=== PATIENT | female | born 1940 | race Caucasian/White ===

== ENCOUNTER → 2018-07-05 | Outpatient (REF) | payer MEDICARE | LOC: M LAB REF 12:16 | DX: R30.0 Dysuria (principal) | CPT/HCPCS: 87086 ==

== ENCOUNTER → 2019-05-30 | Outpatient (REF) | payer MEDICARE | LOC: M LAB REF 19:21 | PROVIDERS: ATTEND Physician Assistant | DX: N39.0 Urinary tract infection, site not specified (principal) ==

== ENCOUNTER 2025-03-20 10:14 | Emergency (ER) | payer MEDICARE ==
[~2025-03-20] VITALS: Ht 165.1 cm; Wt 59.0 kg
[2025-03-20 11:17] LABS: BASO % 0.5 % (0.0-1.0); EOS # 0.1 10^3/uL (0.0-0.5); EOS % 1.9 % (0.0-3.0); HEMATOCRIT 34.4 % (36.0-47.0); HEMOGLOBIN 10.7 g/dl (12.0-15.5); LYMPH # 0.6 10^3/uL (1.5-5.0); LYMPH % 8.8 % (24.0-44.0); MEAN CORPUSCULAR HEMOGLOBIN 29.8 pg (27.0-33.0); MEAN CORPUSCULAR HGB CONC 31.1 g/dl (32.0-36.5); MEAN CORPUSCULAR VOLUME 95.8 fl (80.0-96.0); MONO # 0.8 10^3/uL (0.0-0.8); MONO % 12.4 % (2.0-8.0); NEUTROPHILS # 4.9 10^3/uL (1.5-8.5); NEUTROPHILS % 76.1 % (36.0-66.0); PLATELET COUNT, AUTOMATED 144 10^3/uL (150-450); RED BLOOD COUNT 3.59 10^6/uL (4.00-5.40); WHITE BLOOD COUNT 6.5 10^3/uL (4.0-10.0)
[2025-03-20 11:32] LABS: INR 1.53; PROTHROMBIN TIME 18.7 SECONDS (12.5-14.5)
[2025-03-20] MEDS: BOOSTRIX VACCINE (TETANUS/DIPHTH/ACEL. PERTUSSIS) 0.5ML SYR IM.IMMUN ONE (11:39)
[2025-03-20 12:03] LABS: ALBUMIN 3.6 G/DL (3.2-5.2); BILIRUBIN,DIRECT 0.5 MG/DL (<0.4); BILIRUBIN,TOTAL 1.4 MG/DL (0.3-1.2); CREATININE FOR GFR 1.72 MG/DL (0.55-1.30); GLOMERULAR FILTRATION RATE 28.6 (>32); POTASSIUM SERUM 4.3 MMOL/L (3.5-5.1); TOTAL PROTEIN 6.2 G/DL (5.7-8.2)
[2025-03-20 15:11] LABS: KETONE, URINE AUTO RFX NEGATIVE (NEGATIVE); LEUKOCYTE ESTERASE UR AUTO RFX NEGATIVE (NEGATIVE); MUCUS, URINE RFX SMALL (NEGATIVE); NITRITE, URINE AUTO RFX NEGATIVE (NEGATIVE); RBC, URINE AUTO RFX 1 /HPF (0-3); SQUAM EPITHELIAL CELL UR AURFX 0 /HPF (0-6); WBC, URINE AUTO RFX 1 /HPF (0-3)
[2025-03-20] MEDS ORDERED: FARX1TAB3 PO (15:36)
[2025-03-20] MEDS ORDERED: SPIR-10 PO (15:36)
[2025-03-20] MEDS ORDERED: METO200T15 PO (15:36)
[2025-03-20] MEDS ORDERED: QUET1TAB17 PO (15:36)
[2025-03-20] MEDS ORDERED: LEVO150T7 PO (15:36)
[2025-03-20] MEDS ORDERED: DONE10TA90 PO (15:38)
[2025-03-20] MEDS ORDERED: ELIQ5TAB PO (15:38)
[2025-03-20] MEDS ORDERED: ATOR1TAB21 PO (15:38)
[2025-03-20] MEDS ORDERED: PACE200T PO (15:38)
[2025-03-20] MEDS ORDERED: B-12100021 PO (15:38)
[2025-03-20] MEDS ORDERED: ALEN70TA82 PO (15:39)
[2025-03-20] MEDS ORDERED: HOME MED LIST COMPLETE! XX SCH (15:40)
[2025-03-20] MEDS: OLANZapine INTRAMUSCULAR 10MG VIAL IM ONE (22:21)
[2025-03-20] MEDS ORDERED: MOM 30ML SUSPENSION UDC PO PRN (23:05)
[2025-03-20] MEDS ORDERED: ACETAMINOPHEN 325 MG TAB PO PRN (23:05)
[2025-03-20] MEDS ORDERED: MAALOX 30 ML SUSP *UDC PO PRN (23:05)
[2025-03-21] MEDS: APIXABAN 2.5 MG TAB PO SCH (00:57)
[2025-03-21] MEDS: HALOPERIDOL LACTATE 5MG/ML VIAL IV ONE (00:57)
[2025-03-21] MEDS: DOCUSATE SODIUM 100MG CAPSULE PO SCH (00:57)
[2025-03-21] MEDS ORDERED: OLANZapine INTRAMUSCULAR 10MG VIAL IM ONE (05:00)
[2025-03-21] MEDS: LEVOTHYROXINE 150MCG TABLET (0.15MG) PO SCH (07:13)
[2025-03-21] MEDS ORDERED: DAPAGLIFLOZIN PROPANEDIOL 10MG TABLET PO SCH (09:00)
[2025-03-21] MEDS ORDERED: METOPROLOL SUCC. 100MG *XL* TAB PO SCH (09:00)
[2025-03-21] MEDS ORDERED: QUEtiapine FUMARATE 12.5 MG HALF-TAB PO SCH (09:00)
[2025-03-21] MEDS ORDERED: SPIRONOLACTONE 12.5MG PER 1/2 TABLET PO SCH (09:00)
[2025-03-21] MEDS ORDERED: AMIODARONE 200 MG TAB PO SCH (09:00)
[2025-03-21 11:46] VITALS: BP 114/65; TEMP 97.3; O2SAT 100
[2025-03-21] MEDS ORDERED: ATORVASTATIN 20 MG TAB PO SCH (21:00)
== END 2025-03-21 11:55 | disposition home or self-care (01) ==
LOC: M ED 10:14 → EDBD 10:14 → M ED 03-21 11:55
DX: R29.6 Repeated falls (principal); I44.0 Atrioventricular block, first degree; I48.91 Unspecified atrial fibrillation; E03.9 Hypothyroidism, unspecified; E78.5 Hyperlipidemia, unspecified; F03.90 Unspecified dementia, unspecified severity, without behavioral disturbance, psychotic disturbance, mood disturbance, and anxiety; Z23 Encounter for immunization; Z88.2 Allergy status to sulfonamides; Z79.01 Long term (current) use of anticoagulants; Z79.899 Other long term (current) drug therapy
CPT/HCPCS: 70450; 71045; 80048; 80076; 81001; 83690; 84484; 85025; 85610; 90471; 90715; 93005; 93041; 96372; 96374; 97116; 97161; 97530; 99285; J1630; J2359

== ENCOUNTER 2025-07-17 06:02 | Emergency (ER) | payer MEDICARE ==
[~2025-07-17] VITALS: Ht 162.6 cm; Wt 72.0 kg
[~2025-07-17 06:02] MED LIST: ALEN70TA82 PO; ATOR1TAB21 PO; B-12100021 PO; DONE10TA90 PO; ELIQ5TAB PO; FARX1TAB3 PO; LEVO150T7 PO; METO200T15 PO; PACE200T PO; QUET1TAB17 PO; SPIR-10 PO
[2025-07-17] MEDS: OXYMETAZOLINE 0.05% NASAL SPRAY ONE (07:21)
[2025-07-17 07:33] LABS: BASO # 0.0 10^3/uL (0.0-0.2); BASO % 0.5 % (0.0-1.0); EOS # 0.2 10^3/uL (0.0-0.5); EOS % 2.6 % (0.0-3.0); LYMPH # 0.6 10^3/uL (1.5-5.0); LYMPH % 7.2 % (24.0-44.0); MONO # 1.2 10^3/uL (0.0-0.8); MONO % 14.2 % (2.0-8.0); NEUTROPHILS # 6.4 10^3/uL (1.5-8.5); NEUTROPHILS % 75.0 % (36.0-66.0); PLATELET COUNT, AUTOMATED 154 10^3/uL (150-450)
[2025-07-17 07:46] LABS: CALCIUM LEVEL 8.6 MG/DL (8.3-10.6); CARBON DIOXIDE LEVEL 21.0 MMOL/L (20-31); CHLORIDE LEVEL 110.0 MMOL/L (98-107); CREATININE FOR GFR 1.84 MG/DL (0.55-1.30); GLOMERULAR FILTRATION RATE 26.2 (>32); MAGNESIUM LEVEL 2.2 MG/DL (1.8-2.4); POTASSIUM SERUM 4.8 MMOL/L (3.5-5.1); SODIUM LEVEL 142.0 MMOL/L (136-145)
[2025-07-17 07:58] VITALS: BP 194/78
[2025-07-17] MEDS: CHLORTHALIDONE 25 MG TAB PO ONE (07:58)
[2025-07-17 08:05] LABS: INR 1.3
[2025-07-17] MEDS: TRANEXAMIC ACID 100 MG/ML 10ML VIAL ONE (10:54)
[2025-07-17] MEDS ORDERED: AMOX875T2 PO (11:03)
[2025-07-17 11:26] VITALS: BP 145/72; TEMP 97.2; O2SAT 100
== END 2025-07-17 11:26 | disposition home or self-care (01) ==
LOC: M ED 06:02
DX: R04.0 Epistaxis (principal); R00.1 Bradycardia, unspecified; I48.91 Unspecified atrial fibrillation; I10 Essential (primary) hypertension; E03.9 Hypothyroidism, unspecified; F03.90 Unspecified dementia, unspecified severity, without behavioral disturbance, psychotic disturbance, mood disturbance, and anxiety; Z88.2 Allergy status to sulfonamides; Z79.01 Long term (current) use of anticoagulants; Z79.2 Long term (current) use of antibiotics; Z79.899 Other long term (current) drug therapy

== ENCOUNTER 2025-07-17 14:43 | Emergency (ER) | payer MEDICARE ==
[~2025-07-17] VITALS: Ht 167.6 cm; Wt 50.0 kg
[~2025-07-17 14:43] MED LIST changes: +AMOX875T2 PO
[2025-07-17 16:59] VITALS: BP 189/79; TEMP 96.1; O2SAT 96
== END 2025-07-17 17:03 | disposition home or self-care (01) ==
LOC: M ED 14:43
DX: R04.0 Epistaxis (principal); I25.119 Atherosclerotic heart disease of native coronary artery with unspecified angina pectoris; Z88.2 Allergy status to sulfonamides; Z79.2 Long term (current) use of antibiotics; Z79.01 Long term (current) use of anticoagulants; Z79.899 Other long term (current) drug therapy

== ENCOUNTER 2025-07-19 15:39 | Emergency (ER) | payer MEDICARE ==
[~2025-07-19] VITALS: Ht 167.6 cm; Wt 48.6 kg
[2025-07-19 17:19] VITALS: BP 144/81; TEMP 98; O2SAT 97
== END 2025-07-19 17:20 | disposition home or self-care (01) ==
LOC: M ED 15:39
DX: Z48.00 Encounter for change or removal of nonsurgical wound dressing (principal); I48.91 Unspecified atrial fibrillation; I10 Essential (primary) hypertension; Z88.2 Allergy status to sulfonamides; Z79.2 Long term (current) use of antibiotics; Z79.01 Long term (current) use of anticoagulants; Z79.899 Other long term (current) drug therapy

== ENCOUNTER 2025-07-21 10:30 | Emergency (ER) | payer MEDICARE ==
[~2025-07-21] VITALS: Ht 162.6 cm; Wt 50.1 kg
[2025-07-21 10:37] VITALS: BP 146/67; TEMP 97.2; O2SAT 98
== END 2025-07-21 12:36 | disposition home or self-care (01) ==
LOC: M ED 12:13
DX: R09.81 Nasal congestion (principal); R00.1 Bradycardia, unspecified; I48.91 Unspecified atrial fibrillation; E78.5 Hyperlipidemia, unspecified; E03.9 Hypothyroidism, unspecified; Z86.73 Personal history of transient ischemic attack (TIA), and cerebral infarction without residual deficits; Z88.2 Allergy status to sulfonamides; Z79.01 Long term (current) use of anticoagulants; Z79.2 Long term (current) use of antibiotics; Z79.899 Other long term (current) drug therapy